=== PATIENT | male | born 1965 | race Caucasian/White ===

== ENCOUNTER → 2016-11-07 | Outpatient (REF) ==
--- NOTE | 2016-11-07 09:35 | DI ---
Exam: Two x-rays of the chest. Comparison: 12/07/2015. Reason for exam: Screening. FINDINGS: No pneumothorax, pleural effusion, or focal consolidation. The cardiac silhouette is not enlarged. Old granulomas disease is seen within the lung parenchyma. The imaged osseous structures appear grossly unremarkable without acute fracture. Impression: No acute cardiopulmonary process.
== END ==
LOC: RAD 09:05
DX: Z02.89 Encounter for other administrative examinations (principal)

== ENCOUNTER → 2017-10-15 | Outpatient (REF) ==
--- NOTE | 2017-10-15 12:38 | DI ---
EXAM: Chest two views HISTORY: Annual screening FINDINGS: Normal cardiac and mediastinal contours. Normal pulmonary vasculature. Lungs are clear. No significant abnormality of the bony thorax. IMPRESSION: Chest radiograph within normal limits.
== END ==
LOC: RAD 12:18
DX: Z02.89 Encounter for other administrative examinations (principal)